=== PATIENT | male | born 1970 | race Caucasian/White ===

== ENCOUNTER → 2017-06-08 | Emergency (ER) | payer MEDICAID, OTHER ==
[~2017-06-08] VITALS: Ht 167.6 cm; Wt 80.0 kg
[~2017-06-08] MED LIST: FENTAnyl 50 MCG/ML VIAL IV ONE; HYDR-906 PO; IOHEXOL 300MG/ML 150 ML BTL ONE; NAPR-688 PO; ONDA4TAB11 PO; ONDANSETRON 4 MG INJ IV STA; OXYC-279 PO; SOD CHLORIDE 0.9% 1,000 ML IV STA; SOD CHLORIDE 0.9% 100 ML ONE; morphine 4 MG/ML VIAL IV STA
[2017-06-08 23:28] VITALS: Ht 167.6 cm; Wt 80.0 kg
[2017-06-09 00:51] LABS: ABNORMAL IP MESSAGE 1; BASOPHILS % 0.9 % (0.0-2.0); EOSINOPHILS # 0.2 10^3/ul (0.0-0.5); EOSINOPHILS % 3.8 % (0.0-7.0); HEMATOCRIT 33.8 % (42.0-52.0); HEMOGLOBIN 11.5 g/dl (14.0-18.0); LYMPHOCYTES # 1.5 10^3/ul (0.8-2.9); LYMPHOCYTES % 34.4 % (15.0-51.0); MEAN CORPUSCULAR HEMOGLOBIN 30.7 pg (29.0-33.0); MEAN CORPUSCULAR VOLUME 90.1 fl (82.0-101.0); MEAN PLATELET VOLUME 13.7 fl (7.4-10.4); MONOCYTE # 0.5 10^3/ul (0.3-0.9); MONOCYTES % 10.9 % (0.0-11.0); NEUTROPHIL # 2.1 10^3/ul (1.6-7.5); NEUTROPHILS % 49.8 % (39.0-77.0); PLATELET COUNT 53 10^3/UL (140-415); POSITIVE DIFF @See below; RED BLOOD COUNT 3.75 10^6/ul (4.70-6.10); RED CELL DISTRIBUTION WIDTH 15.8 % (11.5-14.5); WHITE BLOOD COUNT 4.2 10^3/ul (4.8-10.8)
[2017-06-09 01:10] LABS: ALBUMIN/GLOBULIN RATIO 0.88; BILIRUBIN,INDIRECT 0.5 mg/dl (0-1.1); BILIRUBIN,TOTAL 0.5 mg/dl (0.2-1.3); CALCIUM 8.7 mg/dl (8.4-10.2); CREATININE 0.7 mg/dl (0.61-1.24); POTASSIUM 3.7 mmol/L (3.5-5.1); TOTAL PROTEIN 8.5 g/dl (6.1-8.1)
--- NOTE | 2017-06-09 01:31 | RADRPT ---
PROCEDURE: Left shoulder. CLINICAL INDICATION: Pain. TECHNIQUE: Three views of the left shoulder. COMPARISON: None. FINDINGS: There is no fracture, dislocation or bone destruction. The joint spaces are within normal limits. Bone mineralization is within normal limits. There is no radiopaque foreign body or abnormal calcif ication. IMPRESSION: Unremarkable left shoulder. .Nolan Whyte MD, MD Date Time Electronically viewed and signed by .Nolan Whyte MD, on 06/09/2017 01:31 .T/
--- NOTE | 2017-06-09 01:32 | RADRPT ---
PROCEDURE: Right ankle. CLINICAL INDICATION: Pain. TECHNIQUE: Three views including AP, lateral and oblique views were performed. COMPARISON: None. FINDINGS: There is no fracture, dislocation or bone destruction. The ankle mortise is within normal limits. Bone mineralization is within normal limits. There is no radiopaque foreign body or abnormal calcif ication. IMPRESSION: No evidence of fracture. .Nolan Whyte MD, Date Time Electronically viewed and signed by .Nolan Whyte MD, on 06/09/2017 01:31 .T/
--- NOTE | 2017-06-09 01:34 | RADRPT ---
PROCEDURE: Pelvis x-ray CLINICAL INDICATION: Fall. Pelvic pain. TECHNIQUE: Single AP view of the pelvis performed. COMPARISON: None FINDINGS: Normal mineralization, architecture and alignment. No fracture or osseous lesion identified. There are no significant degenerative changes. Unremarkable soft tissues. IMPRESSION: No acute fracture or subluxation. RPTAT: [facility] Physician Thierry Date Time Electronically viewed and signed by Physician Thierry on 06/09/2017 01:34 RS/
[2017-06-09 01:36] LABS: INR 1.55; PROTIME 18.9 Sec (11.9-14.9); PT RATIO 1.5
[2017-06-09 01:37] LABS: PARTIAL THROMBOPLASTIN TIME 38.9 Sec (25.0-35.0)
--- NOTE | 2017-06-09 02:25 | RADRPT ---
PROCEDURE: CT chest, abdomen and pelvis with contrast. CLINICAL INDICATION: Injury and pain. TECHNIQUE: CT of the chest, abdomen and pelvis was performed on a multi-detector high-resolution CT scanner. Contiguous axial images were obtained after the administration of 100 cc of Omnipaque-3 00 intravenous contrast. Coronal and sagittal reformatted images were also obtained. Images were r eviewed on the PACS workstation. DICOM images are available. One or more of the following dose reduction techniques were used: - Automated exposure control. - Adjustment of the mA and/or kV according to patient size. - Use of iterative reconstruction technique. Exam CTD/vol = 10.73 mGy. Total exam DLP = 798.30 mGy-cm. COMPARISON: None. FINDINGS: Chest: There is soft tissue swelling with subcutaneous stranding within the right posterior chest w all. The visualized thyroid gland is unremarkable. There are no enlarged axillary lymph nodes. The re are no enlarged mediastinal or hilar lymph nodes. The heart is normal in size. There is no carlene cardial thickening or effusion. The aorta is of normal course and caliber with mild scattered ather osclerotic calcifications. There is mild bilateral dependent atelectasis. There is no parenchymal co nsolidation or pleural effusion. The central tracheobronchial tree is within normal limits. There is no pneumothorax. Abdomen: The liver is normal in size with a diffuse nodular contour compatible with cirrhosis. The re is no focal mass or dilatation of the biliary tree. The gallbladder is not distended. A gallsto ne is identified. The spleen, pancreas and bilateral adrenal glands are within normal limits. Bilat eral kidneys are normal in size with symmetric enhancement. There is no focal renal mass identified . There is minimal hydronephrosis bilaterally. There is no retroperitoneal adenopathy. The abdomin al aorta is of normal caliber. There is no abnormal bowel wall thickening or distension. There is no bowel obstruction or free air . A normal appendix is identified. There is no diverticulosis or diverticulitis. There is no asci ankur. Pelvis: The bladder is moderately distended. The prostate and seminal vesicles are within normal l imits. There is no significant pelvic adenopathy or free fluid. Evaluation of the osseous structures demonstrates no acute fracture. IMPRESSION: Soft tissue swelling with subcutaneous stranding within the right posterior chest wall consistent wi th contusion. Moderately distended bladder with bilateral minimal hydronephrosis. Bladder decompression is suggest ed. Cirrhotic liver. Cholelithiasis. Mild vascular calcification reflective of atherosclerosis. Bilateral mild dependent atelectasis. .Nolan Whyte MD, MD Date Time Electronically viewed and signed by .Nolan Whyte MD, on 06/09/2017 02:25 .T/
--- NOTE | 2017-06-09 04:37 | ERD ---
ER Documentation Chief Complaint Chief Complaint Fall yestarday about 10 feet HPI This 46-year-old male was at work yesterday when he fell 10 feet from a roof and landed on his slot side/back. Denies any head injury or loss of consciousness. No headache. States that he has shortness of breath with severe pain on inspiration. He does state that he had [place] at home and is taking a total of 4 no code for the severe pain that he has in his right mid upper back and right lateral chest wall. Denies abdominal pain but states that he has a history of liver cirrhosis. He also did drink alcohol in the early part of the day with the last drink being 5 hours ago. Says the pain is so severe he has trouble taking a deep breath. Has had nausea with no vomiting. ROS All systems reviewed and are negative except as per history of present illness. Medications Home Meds Active Scripts Ondansetron (Zofran Odt) 4 Mg Tab.rapdis, 4 MG PO Q6, #10 Prov:LE MONTALVO DO 06/09/17 Oxycodone HCl/Acetaminophen (Percocet 5-325 mg Tablet) 1 Each Tablet, 1 EACH PO Q6, #10 TAB Prov:GREENLE DO 06/09/17 Naproxen* (Naproxen*) 500 Mg Tablet, 500 MG PO BID Y for PAIN, #10 TAB Prov:GREENLE DO 06/09/17 Hydrocodone/Acetaminophen ([place] 5-325 Tablet) 1 Each Tablet, 1 EACH PO Q6, #20 TAB Prov:LE MONTALVO DO 06/09/17 Allergies Allergies: Coded Allergies: No Known Allergy (Unverified , 06/08/17) PMhx/Soc Medical and Surgical Hx: pt denies Surgical Hx Hx Miscellaneous Medical Probl: Yes (LIVER CIRRHOSIS) Hx Alcohol Use: Yes Hx Substance Use: No Hx Tobacco Use: No Smoking Status: Never smoker Physical Exam Vitals Vital Signs Date Time Temp Pulse Resp B/P Pulse Ox O2 Delivery O2 Flow Rate FiO2 06/09/17 05:32 97.7 70 20 123/82 97 Room Air 06/09/17 03:00 97.7 66 20 103/62 95 Room Air 06/09/17 00:00 97.7 87 20 138/86 98 Room Air 06/08/17 23:28 97.7 89 20 154/82 99 Physical Exam Const: [] Moderate distress, appears very uncomfortable Head: Atraumatic Eyes: Normal Conjunctiva EOMI, PERRLA ENT: Normal External Ears, Nose and Mouth. Dependent membranes without blood or fluid bilaterally. Neck: Full range of motion..~No midline tenderness or paraspinal muscle tenderness Resp: Clear to auscultation bilaterally however is shallow inspiration, does not take a deep breath. Cardio: Regular rate and rhythm, no murmurs Abd: Soft, non tender, non distended. Normal bowel sounds Back: No midline tenderness, does have a purpuric bruise in the right mid posterior rib cage that is extremely tender to palpation. Ext: Shoulder with mild bruising and tenderness to palpation about the deltoid area., Distal pulses intact all 4 extremities. Does report pain to anterior ankle and does have a bruise right above his burgos with abrasion. 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 Psych: Normal Mood and Affect Result Diagram: 06/09/17 0015 06/09/17 0015 Results 24 hrs Laboratory Tests Test 06/09/17 00:15 06/09/17 00:25 White Blood Count 4.210^3/ul Red Blood Count 3.7510^6/ul Hemoglobin 11.5g/dl Hematocrit 33.8% Mean Corpuscular Volume 90.1fl Mean Corpuscular Hemoglobin 30.7pg Mean Corpuscular Hemoglobin Concent 34.0g/dl Red Cell Distribution Width 15.8% Platelet Count 5310^3/UL Mean Platelet Volume 13.7fl Neutrophils % 49.8% Lymphocytes % 34.4% Monocytes % 10.9% Eosinophils % 3.8% Basophils % 0.9% Nucleated Red Blood Cells % 0.0/100WBC Neutrophils # 2.110^3/ul Lymphocytes # 1.510^3/ul Monocytes # 0.510^3/ul Eosinophils # 0.210^3/ul Basophils # 0.010^3/ul Nucleated Red Blood Cells # 0.010^3/ul Prothrombin Time 18.9Sec Prothrombin Time Ratio 1.5 INR International Normalized Ratio 1.55 Activated Partial Thromboplast Time 38.9Sec Sodium Level 148mmol/L Potassium Level 3.7mmol/L Chloride Level 108mmol/L Carbon Dioxide Level 24mmol/L Anion Gap 20 Blood Urea Nitrogen 6mg/dl Creatinine 0.70mg/dl Glucose Level 116mg/dl Calcium Level 8.7mg/dl Total Bilirubin 0.5mg/dl Direct Bilirubin 0.00mg/dl Indirect Bilirubin 0.5mg/dl Aspartate Amino Transf (AST/SGOT) 220IU/L Alanine Aminotransferase (ALT/SGPT) 79IU/L Alkaline Phosphatase 135IU/L Total Protein 8.5g/dl Albumin 4.0g/dl Globulin 4.50g/dl Albumin/Globulin Ratio 0.88 Lipase 313U/L Lactic Acid Level 1.9mmol/L Current Medications Medications (Trade) Dose Ordered Sig/Renee Route PRN Reason Start Time Stop Time Status Last Admin Dose Admin Sodium Chloride (NS) 1,000 ml @ 1,000 mls/hr Q1H STAT IV 06/09/17 00:15 06/09/17 01:14 DC 06/09/17 00:26 Morphine Sulfate (morphine) 4 mg ONCE STAT IV 06/09/17 00:15 06/09/17 00:20 DC 06/09/17 00:27 Ondansetron HCl (Zofran Inj) 4 mg ONCE STAT IV 06/09/17 00:15 06/09/17 00:20 DC 06/09/17 00:27 Fentanyl (Sublimaze) 50 mcg ONCE ONCE IV 06/09/17 01:30 06/09/17 01:31 DC 06/09/17 01:16 IV Flush 10 ml 10 ml STK-MED ONCE .ROUTE 06/09/17 01:26 06/09/17 01:27 DC 06/09/17 01:40 Sodium Chloride (NS) 100 ml @ ud STK-MED ONCE .ROUTE 06/09/17 01:26 06/09/17 01:27 DC 06/09/17 01:40 Iohexol (Omnipaque 300mg/ ml) 150 ml STK-MED ONCE .ROUTE 06/09/17 01:26 06/09/17 01:27 DC 06/09/17 01:41 Procedures/MDM Posterior chest wall contusion various other contusions after fall with significant mechanism of injury. Patient also has cirrhosis with pancytopenia including thrombocytopenia. He had significant pain initially and was splinting his respirations. He was given IV morphine as well as fentanyl after which he was feeling much better and breathing easier. Told him that he would be admitted for observation and pain control to ensure that he was taking adequate respirations. Patient stated he would prefer to go home with pain medications and did not want to stay in the hospital today. He promises that he will return if he is unsuccessful in breathing and controlling his pain or for any other concerning symptom. He is breathing well I am not going to make him sign out AGAINST MEDICAL ADVICE. CT chest abdomen pelvis interpretation with contrast: No acute intra-abdominal process, cirrhotic liver, no evidence of hematoma or solid organ damage, thorax with posterior chest wall contusion consistent with trauma, no rib fractures, no evidence of bowel obstruction or cardiac abnormalities. X-ray shoulder interpretation: I see no acute fracture or dislocation of the right shoulder. Normal shoulder x-ray ankle x-ray interpretation: I see no acute fracture dislocation or soft tissue swelling of the ankle Chest x-ray interpretation: I see no acute process, no rib fractures, no pulmonary edema, no infiltrates, no pulmonary edema, pneumothorax. front desk monitor interpretation: Normal sinus rhythm without arrhythmia. CT head interpretation: I see no acute process. I see no hemorrhage, no mass- effect, midline shift, no skull fracture. CT C-spine interpretation: See no acute fracture dislocation or subluxation. Departure Diagnosis: Primary Impression: Respiratory distress Additional Impressions: Chest wall contusion Shoulder contusion Severe pain Thrombocytopenia Normocytic anemia Condition: Fair Patient Instructions: Chest Wall Contusion, Fall, Uncertain Cause, Shoulder Contusion Referrals: [facility] YOU HAVE RECEIVED A MEDICAL SCREENING EXAM AND THE RESULTS INDICATE THAT YOU DO NOT HAVE A CONDITION THAT REQUIRES URGENT TREATMENT IN THE EMERGENCY DEPARTMENT. FURTHER EVALUATION AND TREATMENT OF YOUR CONDITION CAN WAIT UNTIL YOU ARE SEEN IN YOUR DOCTORS OFFICE WITHIN THE NEXT 1-2 DAYS. IT IS YOUR RESPONSIBILITY TO MAKE AN APPOINTMENT FOR FOLOW-UP CARE. IF YOU HAVE A PRIMARY DOCTOR --you should call your primary doctor and schedule an appointment IF YOU DO NOT HAVE A PRIMARY DOCTOR YOU CAN CALL OUR PHYSICIAN REFERRAL HOTLINE AT IF YOU CAN NOT AFFORD TO SEE A PHYSICIAN YOU CAN CHOSE FROM THE FOLLOWING [facility] [id number] [facility] [address] [facility] [address] [facility] [address] [facility] [address] [facility]. [facility]. [address] Additional Instructions: Return to this facility TOMORROW for a repeat exam.Return sooner if your condition worsens before then. LE MONTALVO DO Jun 09, 2017 04:31
[2017-06-09 05:32] VITALS: BP 123/82; PULSE 70; RESP 20; TEMP 97.7
--- NOTE | 2017-06-09 05:52 | RADRPT ---
PROCEDURE: CT brain without IV contrast. CLINICAL INDICATION: Headache/fall/ETOH. TECHNIQUE: CT examination of the brain was performed on a 64-slice multidetector scanner. The pat ient was examined without IV contrast. Sagittal and coronal reformatted images were made. The imag es were reviewed on a PACS workstation. DICOM images are available. Total radiation dose: Total CTDIvol: 41 mGy. Total DLP: 665 mGy-cm. One or more of the following dose reduction techniques were used: automated exposure control, adjustment of the mA and/or kV acc ording to patient size, or use of iterative reconstruction technique COMPARISON: None available. FINDINGS: There is mild cerebral atrophy. The kovacs/white matter differentiation is well preserved. There is no other abnormal intra-axial high, low density lesion, suggesting tumor, infarct, bleeding, av malf ormation or inflammatory mass. No subdural or epidural hematoma. The visualized paranasal sinuses and mastoid air cells are clear. The orbits are unremarkable. The calvarium is intact. No scalp abnormalities are seen. IMPRESSION: 1. Mild cerebral atrophy. RPTAT: GG .Guido Montez MD, Date Time Electronically viewed and signed by .Guido Montez MD, on 06/09/2017 05:52 .Y/
--- NOTE | 2017-06-09 05:59 | RADRPT ---
PROCEDURE: CT cervical spine. CLINICAL INDICATION: Neck pain/trauma. TECHNIQUE: CT scan examination of the cervical spine was performed on a [address] scanner. Steffi nal and sagittal reformatted images were obtained from the axial source images. Images were reviewe d on a high-resolution PACS workstation. DICOM images are available. Total radiation dose: Total CTDIvol: 22.2 mGy. Total DLP: 542 mGy-cm. One or more of the followin g dose reduction techniques were used: automated exposure control, adjustment of the mA and/or kV ac cording to patient size, or use of iterative reconstruction technique. COMPARISON: None available. FINDINGS: BONY STRUCTURE, BONY ALIGNMENT: There is no fracture, dislocation or destructive lesion. The bony alignment is anatomic. INDIVISUAL DISK SPACE LEVEL: OCCIPUT/ATLANTO/AXIAL. ARTICULATION: Occipital/atlanto/axial articulation is within normal. The li gamentous complex of the atlanto-axial articulation is unremarkable. C2/3: There is no herniated disk or bulging disk. The disk space is well maintained. No central c anal stenosis or foraminal stenosis. The facet joints are normal. C3/4: There is no herniated disk or bulging disk. The disk space is well maintained. No central c anal stenosis or foraminal stenosis. The facet joints are normal. C4/5: There is no herniated disk or bulging disk. The disk space is well maintained. No central c anal stenosis or foraminal stenosis. The facet joints are normal. C5/6: There is no herniated disk or bulging disk. There is degenerative spondylosis with minimal a nterior osteophytes. No central canal stenosis or foraminal stenosis. The facet joints are normal. C6/7: There is no herniated disk or bulging disk. There is degenerative spondylosis with minimal a nterior osteophytes. No central canal stenosis. There is moderate to severe narrowing of the neural foramina bilaterally due to hypertrophic uncovertebral joints. The joints are normal. C7/T1: There is no herniated disk or bulging disk. The disk space is well-maintained. No central canal stenosis or foraminal stenosis. The facet joints are normal. IMPRESSION: 1. C6/7: Moderate to severe narrowing of the neural foramina bilaterally due to hypertrophic uncov ertebral joints. 2. No fracture. 3. Minimal degenerative spondylosis at C5-C6 and C6-C7 as described above. 4. No central canal stenosis. RPTAT: GG .Guido Montez MD, MD Date Time Electronically viewed and signed by .Guido Montez MD, on 06/09/2017 05:59 .Y/
== END | disposition home or self-care (01) ==
LOC: E/R 23:19
DX: S20.211A Contusion of right front wall of thorax, initial encounter (principal); R06.03 Acute respiratory distress; S40.011A Contusion of right shoulder, initial encounter; D69.6 Thrombocytopenia, unspecified; D64.9 Anemia, unspecified; W17.89XA Other fall from one level to another, initial encounter; Y92.9 Unspecified place or not applicable
CPT/HCPCS: 36415; Z7502; 70450; 71260; 72125; 72170; 73030; 74177; 80053; 83605; 83690; 85025; 85610; 85730; 96374; 96375; J2270; J2405; J3010; J7030; Q9967

== ENCOUNTER 2017-07-19 17:53 | Emergency (ER) | END 2017-07-19 19:00 | disposition left against medical advice (07) ==

== ENCOUNTER 2017-07-19 22:03 | Inpatient (IN) | END 2017-07-23 13:56 | disposition home or self-care (01) | DRG 432 ==

== ENCOUNTER 2017-07-25 14:05 | Emergency (ER) | END 2017-07-25 19:55 | disposition home or self-care (01) ==

== ENCOUNTER 2017-07-27 06:40 | Emergency (ER) | END 2017-07-27 08:52 | disposition left against medical advice (07) ==

== ENCOUNTER 2017-08-02 22:28 | Emergency (ER) | END 2017-08-03 01:34 | disposition left against medical advice (07) ==

== ENCOUNTER 2018-01-06 13:52 | Emergency (ER) | END 2018-01-06 19:19 | disposition home or self-care (01) ==

== ENCOUNTER 2018-01-23 22:02 | Emergency (ER) | END 2018-01-24 02:23 | disposition home or self-care (01) ==

== ENCOUNTER 2018-02-22 21:54 | Inpatient (IN) | END 2018-03-02 12:15 | disposition home or self-care (01) | DRG 377 ==

== ENCOUNTER 2018-03-07 14:52 | Emergency (ER) | END 2018-03-07 21:25 | disposition home or self-care (01) ==